=== PATIENT | female | born 1960 | race Caucasian/White ===

== ENCOUNTER → 2018-07-01 | Outpatient (CLI) | payer BC ==
[~2018-07-01] MED LIST: LANS30CA PO; ZOLP5TAB7 PO
--- NOTE | 2018-07-01 15:15 | Diagnostic Imaging Report ---
PROCEDURE: CT sinuses without contrast TECHNIQUE: Multiple contiguous axial images were obtained through the sinuses without the use of intravenous contrast. Coronal and sagittal reformations were then performed. Auto Exposure Controls were utilized during the CT exam to meet ALARA standards for radiation dose reduction. INDICATION: Chronic sinusitis and congestion. FINDINGS: The frontal sinus is clear. Ethmoid air cells and sphenoid sinus are clear. Bilateral maxillary sinuses are clear. No mucosal thickening or air-fluid levels are seen. The ostiomeatal complexes are patent. The nasal septum is midline. Mastoid air cells are well-aerated. IMPRESSION: No evidence of sinusitis. Dictated by: Dictated on workstation # [id number]
== END ==
LOC: RAD 14:46
PROVIDERS: ATTEND Otolaryngology Otolaryngology/Facial Plastic Surgery
DX: R09.89 Other specified symptoms and signs involving the circulatory and respiratory systems (principal)
CPT/HCPCS: 70486

== ENCOUNTER → 2018-12-22 | Outpatient (CLI) | payer BC ==
--- NOTE | 2018-12-22 15:50 | Diagnostic Imaging Report ---
INDICATION: Abdominal pain, bloating and nausea. TIME OF EXAM: 03:37 p.m. FINDINGS: There are surgical clips in the right upper quadrant. No definite free air is detected. The bowel gas pattern appears nonobstructed. Calcific density projects just cephalad to the right transverse process of L5, indeterminate. This could represent phlebolith versus ureteral calculus. IMPRESSION: Unremarkable bowel gas pattern. There is a right abdominal calcification, as described. If there is concern for urinary tract calculus, CT of the urinary tracts could be performed for further evaluation. Dictated by: Dictated on workstation # [id number]
== END ==
LOC: RAD 15:24
PROVIDERS: ATTEND Nurse Practitioner Family
DX: R10.9 Unspecified abdominal pain (principal); R19.8 Other specified symptoms and signs involving the digestive system and abdomen
CPT/HCPCS: 74019